=== PATIENT | male | born 1970 | race Caucasian/White ===

== ENCOUNTER → 2017-09-23 07:17 | Outpatient (CLI) | payer OTHER, SELFPAY ==
[2017-09-23 09:01] LABS: Basophils % 0.2 % (0.1-2.0); Eosinophils # 0.2 K/mm3 (0.0-0.4); Eosinophils % 3.7 % (0.1-12.0); Hematocrit 45.9 % (42.0-52.0); Hemoglobin 15.5 g/dL (14.1-18.0); Lymphocytes # 2.1 K/mm3 (0.7-4.5); Lymphocytes % 35.5 K/mm3 (10-50); Mean Corpuscular HGB Conc 33.7 g/dL (31.8-35.4); Mean Corpuscular Hemoglobin 30.9 pg (27.0-31.2); Mean Corpuscular Volume 91.8 fl (80-94); Mean Platelet Volume 8.3 fl (7.4-10.4); Monocytes # 0.4 K/mm3 (0.1-1.0); Monocytes % 6.1 % (1.7-9.3); Neutrophils # 3.2 K/mm3 (1.8-7.8); Neutrophils % 54.5 % (37.0-80.0); Platelet Count 211 K/mm3 (142-424); Red Cell Distribution Width 12.6 % (11.5-17.5); White Blood Count 5.9 K/mm3 (4.8-10.8)
[2017-09-23 09:37] LABS: Alanine Aminotransferase 47 U/L (12-78); Albumin Level 3.8 gm/dL (3.4-5.0); Albumin/Globulin Ratio 1.2 (1.1-1.8); Alkaline Phosphatase 67 U/L (46-116); Bilirubin,Total 0.6 mg/dL (0.2-1.0); Blood Urea Nitrogen 16 mg/dL (7-18); Calcium 8.9 mg/dL (8.5-10.1); Carbon Dioxide 31 mmol/L (21.0-32.0); Chloride 107 mmol/L (98-107); Chol/HDL Ratio 2.5 (1-3.5); Cholesterol 130 mg/dL (140-200); Estimated Glomerular Filt Rate 122 ml/min (>60); Free Thyroxine Index 4.3 ug/dL (5.93-13.13); GFR (African American) 148 ML/MIN (>60); Globulin 3.2 gm/dl (1.3-3.2); Glucose 88 mg/dL (74-106); HDL Cholesterol 52 mg/dL (27-67); LDL Cholesterol 58 mg/dL (0-130); Sodium 144 mmol/L (136-145); T4 (Thyroxine) 10.9 ug/dl (4.7-13.3); Thyroid Stimulating Hormone 0.01 uIU/ml (0.358-3.740); Triglycerides 101 mg/dL (30-200); Triiodothryronine (T3) Uptake 39 % (31-39); VLDL Cholesterol 20 mg/dL (0-40)
[2017-09-23 09:44] LABS: Aspartate Amino Transferase 19 U/L (15-37)
== END ==
PROVIDERS: PCP Internal Medicine Adolescent Medicine; Visit Provider Internal Medicine Adolescent Medicine
DX: E03.9 Hypothyroidism, unspecified (principal); E78.5 Hyperlipidemia, unspecified; C73 Malignant neoplasm of thyroid gland
CPT/HCPCS: 36415; 80053; 80061; 84436; 84443; 84479; 85025

== ENCOUNTER → 2018-07-08 14:02 | Outpatient (CLI) | payer OTHER, SELFPAY ==
[2018-07-08 15:36] LABS: Thyroid Stimulating Hormone 0.04 uIU/ml (0.358-3.740)
[2018-07-09 12:33] LABS: T4 (Thyroxine) 10.8 ug/dl (4.7-13.3); Triiodothryronine (T3) Uptake 37 % (31-39)
== END ==
PROVIDERS: Visit Provider Internal Medicine Adolescent Medicine
DX: E03.9 Hypothyroidism, unspecified (principal)
CPT/HCPCS: 36415; 84436; 84443; 84479

== ENCOUNTER → 2019-04-27 08:19 | Outpatient (CLI) | payer OTHER, SELFPAY ==
--- NOTE | 2019-04-27 08:22 | XR_ITS ---
PROCEDURE: XR HAND LT MIN 3V CLINICAL INDICATION: LT HAND INJURY, pain following injury COMPARISON: No exams were available for comparison FINDINGS: No fracture or dislocation. No lytic or blastic change. There is normal mineralization. The joint spaces are well-preserved. No significant degenerative/arthritic changes. No erosive changes evident. Other findings:None. IMPRESSION: Negative left hand Dictated by: Jerome Olivo MD 04/27/2019 09:27 Electronically signed by Jerome Olivo MD in [place] 04/27/2019 09:27
== END ==
PROVIDERS: PCP Internal Medicine Adolescent Medicine; Visit Provider Internal Medicine Adolescent Medicine
DX: S69.92XA Unspecified injury of left wrist, hand and finger(s), initial encounter (principal)
CPT/HCPCS: 73130

== ENCOUNTER → 2019-05-07 07:32 | Outpatient (CLI) | payer OTHER, SELFPAY ==
[2019-05-07 08:04] LABS: Basophils % 0.7 % (0.1-2.0); Eosinophils # 0.2 K/mm3 (0.0-0.4); Eosinophils % 3.9 % (0.1-12.0); Hematocrit 48.3 % (42.0-52.0); Hemoglobin 15.3 g/dL (14.1-18.0); Lymphocytes # 1.5 K/mm3 (0.7-4.5); Lymphocytes % 29.5 % (10-50); Mean Corpuscular HGB Conc 31.6 g/dL (31.8-35.4); Mean Corpuscular Hemoglobin 30.4 pg (27.0-31.2); Mean Platelet Volume 7.7 fl (7.4-10.4); Monocytes # 0.3 K/mm3 (0.1-1.0); Monocytes % 6.6 % (1.7-9.3); Neutrophils # 3.1 K/mm3 (1.8-7.8); Neutrophils % 59.3 % (37.0-80.0); Platelet Count 248 K/mm3 (142-424); Red Blood Count 5.04 M/mm3 (4.60-6.20); Red Cell Distribution Width 13.8 % (11.5-17.5); White Blood Count 5.2 K/mm3 (4.8-10.8)
[2019-05-07 10:38] LABS: Alanine Aminotransferase 33 U/L (12-78); Albumin/Globulin Ratio 1.3 (1.1-1.8); Alkaline Phosphatase 59 U/L (46-116); Aspartate Amino Transferase 12 U/L (15-37); Bilirubin,Total 0.7 mg/dL (0.2-1.0); Blood Urea Nitrogen 17 mg/dL (7-18); Carbon Dioxide 32 mmol/L (21.0-32.0); Chloride 104 mmol/L (98-107); Chol/HDL Ratio 2.9 (1-3.5); Cholesterol 164 mg/dL (140-200); Creatinine,Serum 0.84 mg/dL (0.70-1.30); Estimated Glomerular Filt Rate 98 ml/min (>60); Free Thyroxine Index 4.4 ug/dL (5.93-13.13); GFR (African American) 119 ML/MIN (>60); Globulin 3.2 gm/dl (1.3-3.2); Glucose 100 mg/dL (74-106); HDL Cholesterol 56 mg/dL (27-67); LDL Cholesterol 90 mg/dL (0-130); Prostate Specific Ag Screen 0.2 ng/mL (0.0-4.0); Sodium 142 mmol/L (136-145); T4 (Thyroxine) 10.9 ug/dl (4.7-13.3); Total Protein,Serum 7.2 gm/dL (6.4-8.2); Triglycerides 91 mg/dL (30-200); Triiodothryronine (T3) Uptake 40 % (31-39); VLDL Cholesterol 18 mg/dL (0-40)
== END ==
PROVIDERS: Visit Provider Internal Medicine Adolescent Medicine
DX: C73 Malignant neoplasm of thyroid gland (principal); E78.5 Hyperlipidemia, unspecified; E03.9 Hypothyroidism, unspecified; N40.0 Benign prostatic hyperplasia without lower urinary tract symptoms; Z12.5 Encounter for screening for malignant neoplasm of prostate
CPT/HCPCS: 36415; 80053; 80061; 84436; 84443; 84479; 85025; G0103

== ENCOUNTER → 2020-02-10 07:08 | Outpatient (CLI) | payer OTHER, SELFPAY ==
[2020-02-10 07:25] LABS: Basophils % 0.5 % (0.1-2.0); Eosinophils # 0.2 K/mm3 (0.0-0.4); Eosinophils % 3.2 % (0.1-12.0); Hematocrit 47.5 % (42.0-52.0); Hemoglobin 16.1 g/dL (14.1-18.0); Lymphocytes % 31.4 % (10-50); Mean Corpuscular HGB Conc 33.8 g/dL (31.8-35.4); Mean Corpuscular Volume 94.8 fl (80-94); Mean Platelet Volume 7.9 fl (7.4-10.4); Monocytes # 0.4 K/mm3 (0.1-1.0); Monocytes % 6.1 % (1.7-9.3); Neutrophils # 3.8 K/mm3 (1.8-7.8); Neutrophils % 58.8 % (37.0-80.0); Platelet Count 223 K/mm3 (142-424); Red Blood Count 5.01 M/mm3 (4.60-6.20); Red Cell Distribution Width 13.3 % (11.5-17.5); White Blood Count 6.5 K/mm3 (4.8-10.8)
[2020-02-10 08:31] LABS: Chloride 102 mmol/L (98-107); Potassium 4.1 mmoL/L (3.5-5.1); Sodium 137 mmol/L (136-145)
[2020-02-10 08:33] LABS: Blood Urea Nitrogen 18 mg/dl (9-20)
[2020-02-10 08:34] LABS: Alanine Aminotransferase 59 U/L (12-78); Albumin Level 4.4 g/dl (3.5-5.0); Albumin/Globulin Ratio 1.5 (1.1-1.8); Alkaline Phosphatase 57 U/L (38-126); Anion Gap 8.1 mEq/L (5-15); Aspartate Amino Transferase 38 U/L (17-59); Bilirubin,Total 0.6 mg/dl (0.2-1.3); Calcium 9.4 mg/dl (8.4-10.2); Carbon Dioxide 31 mmol/L (22.0-30.0); Cholesterol 163 mg/dl (140-200); Estimated Glomerular Filt Rate 90 ml/min (>60); GFR (African American) 109 ML/MIN (>60); Glucose 103 mg/dl (74-100); HDL Cholesterol 54 mg/dl (40-60); Total Protein,Serum 7.4 g/dl (6.3-8.2); Triglycerides 143 mg/dl (30-150); VLDL Cholesterol 29 mg/dL (0-40)
[2020-02-10 08:47] LABS: Direct LDL Cholesterol 78.29 mg/dL (100-129)
[2020-02-10 08:52] LABS: Free Thyroxine Index 3.7 ug/dL (5.93-13.13); T4 (Thyroxine) 9.9 ug/dl (5.53-11.0); Triiodothryronine (T3) Uptake 37 % (23.5-40.5)
[2020-02-10 08:53] LABS: 25-OH Vitamin D, Total 39.3 ng/mL (30-100)
[2020-02-10 09:05] LABS: Prostate Specific Ag Screen 0.3 ng/ml (0.0-4.0)
== END ==
PROVIDERS: Visit Provider Internal Medicine Adolescent Medicine
DX: E78.5 Hyperlipidemia, unspecified (principal); E03.9 Hypothyroidism, unspecified; M79.10 Myalgia, unspecified site; N40.0 Benign prostatic hyperplasia without lower urinary tract symptoms; Z12.5 Encounter for screening for malignant neoplasm of prostate
CPT/HCPCS: 36415; 80053; 80061; 82306; 84436; 84443; 84479; 85025; G0103

== ENCOUNTER → 2020-03-14 19:55 | Outpatient (CLI) | payer OTHER, SELFPAY | PROVIDERS: PCP Internal Medicine Adolescent Medicine; Visit Provider Internal Medicine Adolescent Medicine | DX: Z20.828 Contact with and (suspected) exposure to other viral communicable diseases (principal) | CPT/HCPCS: U0003 ==

== ENCOUNTER → 2022-03-13 06:50 | Outpatient (CLI) | payer OTHER, SELFPAY ==
[2022-03-13 07:37] LABS: Chloride 106 mmol/L (98-107); Sodium 140 mmol/L (136-145)
[2022-03-13 07:39] LABS: Alanine Aminotransferase 40 U/L (12-78); Albumin Level 4.4 g/dl (3.5-5.0); Alkaline Phosphatase 59 U/L (38-126); Aspartate Amino Transferase 35 U/L (17-59); Bilirubin,Total 0.4 mg/dl (0.2-1.3); Blood Urea Nitrogen 16 mg/dl (9-20); Estimated Glomerular Filt Rate 102 ml/min (>60); GFR (African American) 124 ML/MIN (>60)
[2022-03-13 07:40] LABS: Albumin/Globulin Ratio 1.8 (1.1-1.8); Calcium 9.3 mg/dl (8.4-10.2); Carbon Dioxide 31 mmol/L (22.0-30.0); Chol/HDL Ratio 2.9 (1-3.5); Cholesterol 153 mg/dl (140-200); Globulin 2.4 g/dL (1.3-3.2); Glucose 113 mg/dl (74-100); HDL Cholesterol 53 mg/dl (40-60); Total Protein,Serum 6.8 g/dl (6.3-8.2); Triglycerides 94 mg/dl (30-150); VLDL Cholesterol 19 mg/dL (0-40)
[2022-03-13 07:51] LABS: Direct LDL Cholesterol 74.65 mg/dL (100-129)
[2022-03-13 07:57] LABS: Triiodothryronine (T3) Uptake 40 % (23.5-40.5)
[2022-03-13 07:58] LABS: Free Thyroxine Index 4.4 ug/dL (5.93-13.13); T4 (Thyroxine) 10.9 ug/dl (5.53-11.0)
[2022-03-13 08:03] LABS: Basophils # 0.1 K/mm3 (0-0.2); Basophils % 1.2 % (0.1-2.0); Eosinophils # 0.4 K/mm3 (0.0-0.4); Eosinophils % 5.8 % (0.1-12.0); Hematocrit 46.3 % (42.0-52.0); Hemoglobin 15.4 g/dL (14.1-18.0); Mean Corpuscular HGB Conc 33.2 g/dL (31.8-35.4); Mean Corpuscular Hemoglobin 32.2 pg (27.0-31.2); Mean Corpuscular Volume 97.2 fl (80-94); Mean Platelet Volume 8.5 fl (7.4-10.4); Monocytes # 0.5 K/mm3 (0.1-1.0); Monocytes % 6.9 % (1.7-9.3); Neutrophils # 3.5 K/mm3 (1.8-7.8); Neutrophils % 55.1 % (37.0-80.0); Platelet Count 226 K/mm3 (142-424); Red Blood Count 4.76 M/mm3 (4.60-6.20); Red Cell Distribution Width 13.1 % (11.5-17.5); White Blood Count 6.4 K/mm3 (4.8-10.8)
[2022-03-13 08:37] LABS: Prostate Specific Ag Screen 0.4 ng/ml (0.0-4.0)
== END ==
PROVIDERS: PCP Internal Medicine Adolescent Medicine; Visit Provider Internal Medicine Adolescent Medicine
DX: C73 Malignant neoplasm of thyroid gland (principal); E03.9 Hypothyroidism, unspecified; E78.5 Hyperlipidemia, unspecified; N40.0 Benign prostatic hyperplasia without lower urinary tract symptoms; Z12.5 Encounter for screening for malignant neoplasm of prostate
CPT/HCPCS: 36415; 80053; 80061; 84436; 84443; 84479; 85025; G0103

== ENCOUNTER → 2022-03-20 15:09 | Outpatient (CLI) | payer OTHER, SELFPAY ==
[2022-03-20 16:09] LABS: Hemoglobin A1C 5.5 % (4.0-6.0)
[2022-03-20 18:54] LABS: Vitamin B12 527 pg/mL (239-931)
== END ==
PROVIDERS: PCP Internal Medicine Adolescent Medicine; Visit Provider Internal Medicine Adolescent Medicine
DX: E03.9 Hypothyroidism, unspecified (principal); E78.5 Hyperlipidemia, unspecified; Z79.899 Other long term (current) drug therapy
CPT/HCPCS: 36415; 82607; 82746; 83036

== ENCOUNTER → 2023-06-02 07:06 | Outpatient (CLI) | payer OTHER, SELFPAY ==
--- NOTE | 2023-06-02 07:40 | MR_ITS ---
FINAL REPORT CLINICAL HISTORY: left shoulder pain FINDINGS: Multiplanar MR imaging of the left shoulder was performed without contrast. There is motion artifact which limits exam sensitivity. The tendons of the rotator cuff are intact without evidence of rotator cuff tear. There is moderate AC joint arthrosis. Edema is seen in the distal clavicle, acromion and joint capsule which may be inflammatory or secondary to mild AC joint injury. A small amount of fluid is present in the subacromial/subdeltoid bursa. No labral tear is identified. The long head of the biceps tendon is intact. No significant glenohumeral joint effusion is identified. The musculature is intact. There is no evidence of soft tissue mass or cyst. IMPRESSION: No evidence of rotator cuff tear or labral tear. Moderate AC joint arthrosis with edema in the distal clavicle, acromion and joint capsule which may be inflammatory or secondary to mild AC joint injury. Mild a.c. joint arthrosis with mild subacromial/subdeltoid bursitis. Reviewed, Interpreted and Dictated by Michael Lange III, MD Transcribed by Kimberley Ames Authenticated and [facility]
== END ==
PROVIDERS: PCP Internal Medicine Adolescent Medicine; Visit Provider Orthopaedic Surgery
DX: M75.82 Other shoulder lesions, left shoulder (principal)
CPT/HCPCS: 73221

== ENCOUNTER 2023-09-10 06:48 | Outpatient (CLI) | payer OTHER, SELFPAY ==
[2023-09-10 07:49] LABS: Basophils # 0.1 K/mm3 (0-0.2); Basophils % 1.2 % (0.1-2.0); Eosinophils # 0.3 K/mm3 (0.0-0.4); Eosinophils % 5.4 % (0.1-12.0); Hematocrit 45.6 % (42.0-52.0); Hemoglobin 15.8 g/dL (14.1-18.0); Lymphocytes # 1.7 K/mm3 (0.7-4.5); Lymphocytes % 31.6 % (10-50); Mean Corpuscular HGB Conc 34.6 g/dL (31.8-35.4); Mean Corpuscular Hemoglobin 32.5 pg (27.0-31.2); Mean Corpuscular Volume 93.7 fl (80-94); Mean Platelet Volume 8.4 fl (7.4-10.4); Monocytes # 0.4 K/mm3 (0.1-1.0); Monocytes % 6.9 % (1.7-9.3); Neutrophils % 54.8 % (37.0-80.0); Platelet Count 211 K/mm3 (142-424); Red Blood Count 4.86 M/mm3 (4.60-6.20); Red Cell Distribution Width 13.1 % (11.5-17.5); White Blood Count 5.4 K/mm3 (4.8-10.8)
[2023-09-10 08:46] LABS: Alanine Aminotransferase 36 U/L (12-78); Albumin Level 4.3 g/dl (3.5-5.0); Albumin/Globulin Ratio 1.7 (1.1-1.8); Alkaline Phosphatase 62 U/L (38-126); Anion Gap 8.2 mEq/L (5-15); Aspartate Amino Transferase 30 U/L (17-59); Bilirubin,Total 0.7 mg/dl (0.2-1.3); Blood Urea Nitrogen 15 mg/dl (9-20); Calcium 9.3 mg/dl (8.4-10.2); Carbon Dioxide 31 mmol/L (22.0-30.0); Chloride 105 mmol/L (98-107); Chol/HDL Ratio 3.7 (1-3.5); Cholesterol 162 mg/dl (140-200); Estimated Glomerular Filt Rate 102 ml/min (>60); GFR (African American) 123 ML/MIN (>60); Globulin 2.6 g/dL (1.3-3.2); Glucose 95 mg/dl (74-100); HDL Cholesterol 44 mg/dl (40-60); Potassium 4.2 mmoL/L (3.5-5.1); Sodium 140 mmol/L (136-145); Total Protein,Serum 6.9 g/dl (6.3-8.2); Triglycerides 107 mg/dl (30-150); VLDL Cholesterol 21 mg/dL (0-40)
[2023-09-10 08:57] LABS: Direct LDL Cholesterol 82.65 mg/dL (100-129)
[2023-09-10 09:05] LABS: T4 (Thyroxine) 10.9 ug/dl (5.53-11.0); Triiodothryronine (T3) Uptake 37 % (23.5-40.5)
[2023-09-10 09:19] LABS: Thyroid Stimulating Hormone 0.14 uIU/mL (0.465-4.68)
== END 2023-09-10 23:59 ==
LOC: LAB 06:48
PROVIDERS: PCP Internal Medicine Adolescent Medicine; Visit Provider Internal Medicine Adolescent Medicine
DX: E03.9 Hypothyroidism, unspecified (principal); Z77.011 Contact with and (suspected) exposure to lead; Z79.899 Other long term (current) drug therapy; Z00.00 Encounter for general adult medical examination without abnormal findings
CPT/HCPCS: 36415; 80053; 80061; 83655; 84436; 84443; 84479; 85025

== ENCOUNTER 2023-10-29 06:36 | Outpatient (CLI) | payer OTHER, SELFPAY ==
[2023-10-29] MEDS: METOPROLOL TARTRATE 25MG TABLET 25 MG (06:55)
[2023-10-29] MEDS: IVABRADINE HCL 7.5MG TABLET 15 MG PO (06:55)
[2023-10-29] MEDS: METOPROLOL TARTRATE 50MG TABLET 50 MG (06:55)
[2023-10-29 07:05] VITALS: BP 120/69; PULSE 81; RESP 18; O2SAT 98; BMI 23.3
--- NOTE | 2023-10-29 07:21 | CT_ITS ---
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 A noncontrast coronary calcium scan was performed. A CT attenuation threshold of 130 Hounsfield units (HU) was used for the detection of calcium in contiguous voxels of 1 sq mm in area to be counted as individual lesions. Bolus tracking in the ascending aorta with a threshold of 180 HU was performed. Immediately afterwards, ECG synchronized cardiac CT was then performed from the cardiac base to apex using retrospective gating with ECG tube current modulation. A total of 85 mL of Isovue 370 mg/mL contrast medium was administered at 5 mL/sec followed by a saline flush using a biphasic injection protocol. A tube voltage of 120 KVp was used. The patient received the following medications prior to the cardiac CT. 75 mg of oral metoprolol 5 mg of intravenous metoprolol 15 mg of oral ivabradine 0.8 mg of sublingual nitroglycerin The average heart rate at the time of acquisition was 60 bpm and regular. Image Reconstruction Transaxial images were reconstructed at 0.67 mm slide thickness. Data was reviewed interactively on an advanced workstation capable of 2 and 3-dimensional displays in all conventional reconstruction formats, including multiplanar reformations, maximum intensity projections, curved multiplanar reformations, and volume rendered reconstructions. When applicable, selected routine images describing the relevant coronary anatomy and pathology were saved and sent to PACS. Complications None Technical Quality Overall image quality was good. Coronary artery opacification was adequate. Total DLP (Dose-Length Product) is 1669.3 mGy-cm. The reported value represents the total of one or more individual components during the CT acquisition of this date and at this time, and as such, the same value may appear in more than one CT report depending on the interpreting/reporting physicians. COMPARISON None FINDINGS CT Coronary Calcium Scoring LMA (Left Main Artery) = 134 LAD (Left Anterior Descending) = 226 LCX (Left Coronary Circumflex) = 0 RCA (Right Coronary Artery) = 107 Total Calcium Score = 466 using the AJ-130 method. The observed calcium score of 466 is at 98th percentile for subjects of the same age, sex, and race/ethnicity. The interpretation of the calcium heart score is based on the following continuum*: 0 = no calcified plaque detected (risk of coronary artery disease is very low ??? less than 5%) 1-10 = calcium detected in extremely minimal levels (risk of coronary diseases is still low ??? less than 10%) 11-100 = mild levels of plaque detected with certainty (mild or minimal narrowing of heart arteries is likely) 101-400 = definite,at least moderate levels of plaque detected (relatively high risk of a heart attack within 3-5 years) >401-999 = extensive levels of plaque detected (high risk of heart attack, high levels of vascular disease are present, high likelihood of at least one significant coronary narrowing) *The calcium heart score quantifies the burden of coronary calcification/plaque in the coronary arteries. The calcium heart score is not able to evaluate the presence or burden of non-calcified (i.e. soft) plaque. There is no identifiable calcification in the aortic valve, mitral annulus or mitral valve, pericardium, or myocardium. Coronary CT Angiography The coronary arterial system is right dominant. Quantitative Stenosis Grading: Left Main (LM): The left main originates normally from the left sinus of Valsalva. The LM trifurcates into the left anterior descending artery, ramus intermedius, and left circumflex artery. There is calcified plaque noted in the distal LM, with no significant luminal stenosis. Left Anterior Descending (LAD) and Diagonal Branches: The LAD gives off 2 diagonal branch(es). There are multiple mixed calcified/noncalcified plaque noted along the proximal and mid LAD, with up to 25-49% luminal stenosis. There is no evidence of LAD-myocardial bridge. Ramus-intermedius (RI): The RI is patent. Left Circumflex (LCX) and Obtuse Marginals (OM): The LCX gives off 1 Obtuse Marginal (OM) branch(es). The LCX and its branches are patent with no evidence of atherosclerosis. Right Coronary Artery (RCA): The RCA originates normally from the right sinus of Valsalva. The RCA gives off a posterior descending artery (PDA) and posterolateral (PL) branches. There is calcified plaque noted in the proximal RCA, with no significant luminal stenosis. Non-Coronary Cardiac Findings: Analysis of the left ventricular (LV) structure and function was performed after 3-D reconstruction of the LV from axial images, with user-corrected automatic contouring for assessment of LV volumes and user-defined reconstruction from oblique planes for measurement of 3-D cardiac structure and function. -The left ventricle systolic function is normal. -There is no left atrial appendage filling defect. Two right pulmonary veins and two left pulmonary veins drain normally into the left atrium. -No pericardial thickening or calcification. -Central and branch pulmonary arteries in the [id number] are unremarkable. -Thoracic aorta within the visualized thoracic aortic-branches in the [id number] is unremarkable. Extracardiac Structures No significant extra-cardiac findings. Note, however, that this study is focused on the cardiac findings. IMPRESSION -Presence of coronary calcification with an Agatston score = 466 using the AJ-130 method. -The observed calcium score of 466 is at 98th percentile for subjects of the same age, sex, and race/ethnicity. -Mild, non-obstructive atherosclerotic plaque in the proximal and mid LAD. No significant flow-limiting atherosclerosis of the coronary arteries. -CAD-RADS 2. Management recommendations per ACC/AHA guidelines*, as clinically appropriate. *Recommendations: CAD RADS 0: Reassurance. Consider non-atherosclerotic causes of chest pain. CAD RADS 1: Consider non-atherosclerotic causes of chest pain. Consider preventive therapy and risk factor modification. CAD RADS 2: Consider non-atherosclerotic causes of chest pain. Consider preventive therapy and risk factor modification, particularly for patients with nonobstructive plaque in multiple segments. CAD RADS 3: Consider further functional testing. Consider symptom-guided anti-ischemic and preventive pharmacotherapy as well as risk factor modification per published guideline statements. CAD RADS 4A: Consider further functional testing or invasive coronary angiography with revascularization per published guideline statements. Consider symptom-guided anti-ischemic and preventive pharmacotherapy as well as risk factor modification per published guideline statements. CAD RADS 4B: Invasive coronary angiography recommended with revascularization per published guideline statements. Consider symptom-guided anti-ischemic and preventive pharmacotherapy as well as risk factor modification per published guideline statements. CAD RADS 5: Consider invasive angiography and/or viability assessment with revascularization per published guideline statements. Consider symptom-guided anti-ischemic and preventive pharmacotherapy as well as risk factor modification per published guideline statements. CRITICAL RESULT None COMMUNICATION Per this written report The coronary and cardiac findings of this CCTA were reviewed, reported, and signed by Armand Estrella MD (Implementation Engineer) Conclusion Electronically signed by : Gaye Estrella MD 10/30/2023 12:42:26
[2023-10-29 07:55] VITALS: BP 128/81; PULSE 63; RESP 16; O2SAT 99
[2023-10-29] MEDS: NITROGLYCERIN 0.4MG SL TABLET 0.800000000000000044 MG SL (07:55)
[2023-10-29 08:00] VITALS: BP 113/74; PULSE 62; RESP 16; O2SAT 96
[2023-10-29 08:05] VITALS: BP 97/62; PULSE 68; RESP 17; O2SAT 94
[2023-10-29] MEDS: METOPROLOL TARTRATE 5MG/5ML VIAL *IVABRADINE+METOPROLOL REGIMINE 5 MG IV (08:05)
[2023-10-29 08:10] VITALS: BP 121/62; PULSE 67; RESP 17; O2SAT 96
[2023-10-29 08:15] VITALS: BP 115/71; PULSE 63; RESP 17; TEMP 36.6; O2SAT 97
[2023-10-29] MEDS: 0.9 % SODIUM CHLORIDE 50 ML VIAL IV (08:42)
[2023-10-29] MEDS: IOPAMIDOL-370 (76%);100ML BOTTLE 85 ML IV (08:43)
== END 2023-10-29 08:20 | disposition home or self-care (01) ==
PROVIDERS: PCP Internal Medicine Adolescent Medicine; Visit Provider Internal Medicine Adolescent Medicine
DX: R07.9 Chest pain, unspecified (principal)
CPT/HCPCS: 75571; 75574; Q9967

== ENCOUNTER 2023-12-20 08:02 | Outpatient (CLI) | payer OTHER, SELFPAY ==
[2023-12-20 09:02] LABS: Basophils # 0.1 K/mm3 (0-0.2); Basophils % 1.1 % (0.1-2.0); Eosinophils # 0.2 K/mm3 (0.0-0.4); Eosinophils % 3.4 % (0.1-12.0); Hematocrit 48.6 % (42.0-52.0); Hemoglobin 16.1 g/dL (14.1-18.0); Lymphocytes # 1.9 K/mm3 (0.7-4.5); Lymphocytes % 28.2 % (10-50); Mean Corpuscular HGB Conc 33.2 g/dL (31.8-35.4); Mean Corpuscular Hemoglobin 32.1 pg (27.0-31.2); Mean Corpuscular Volume 96.8 fl (80-94); Mean Platelet Volume 8.3 fl (7.4-10.4); Monocytes # 0.3 K/mm3 (0.1-1.0); Monocytes % 4.3 % (1.7-9.3); Neutrophils # 4.2 K/mm3 (1.8-7.8); Neutrophils % 63.1 % (37.0-80.0); Platelet Count 256 K/mm3 (142-424); Red Blood Count 5.02 M/mm3 (4.60-6.20); Red Cell Distribution Width 13.4 % (11.5-17.5); White Blood Count 6.7 K/mm3 (4.8-10.8)
[2023-12-20 11:12] LABS: Chloride 102 mmol/L (98-107)
[2023-12-20 11:13] LABS: Potassium 4.5 mmoL/L (3.5-5.1); Sodium 139 mmol/L (136-145)
[2023-12-20 11:15] LABS: Alanine Aminotransferase 42 U/L (12-78); Albumin Level 4.6 g/dl (3.5-5.0); Albumin/Globulin Ratio 1.5 (1.1-1.8); Alkaline Phosphatase 62 U/L (38-126); Anion Gap 11.5 mEq/L (5-15); Aspartate Amino Transferase 39 U/L (17-59); Bilirubin,Total 0.9 mg/dl (0.2-1.3); Blood Urea Nitrogen 18 mg/dl (9-20); Carbon Dioxide 30 mmol/L (22.0-30.0); Cholesterol 151 mg/dl (140-200); Estimated Glomerular Filt Rate 102 ml/min (>60); GFR (African American) 123 ML/MIN (>60); Total Protein,Serum 7.6 g/dl (6.3-8.2); Triglycerides 93 mg/dl (30-150); VLDL Cholesterol 19 mg/dL (0-40)
[2023-12-20 11:16] LABS: Calcium 9.6 mg/dl (8.4-10.2); Chol/HDL Ratio 2.4 (1-3.5); Glucose 98 mg/dl (74-100); HDL Cholesterol 64 mg/dl (40-60)
[2023-12-20 11:27] LABS: Direct LDL Cholesterol 70.55 mg/dL (100-129)
[2023-12-20 11:46] LABS: Thyroid Stimulating Hormone 0.44 uIU/mL (0.465-4.68)
[2023-12-20 12:03] LABS: Prostate Specific Ag Screen 0.3 ng/ml (0.0-4.0)
== END 2023-12-20 23:59 | disposition home or self-care (01) ==
PROVIDERS: PCP Internal Medicine Adolescent Medicine; Visit Provider Internal Medicine Adolescent Medicine
DX: E78.5 Hyperlipidemia, unspecified (principal); C73 Malignant neoplasm of thyroid gland; Z12.5 Encounter for screening for malignant neoplasm of prostate
CPT/HCPCS: 36415; 80053; 80061; 84443; 85025; G0103

== ENCOUNTER 2024-01-12 06:03 | Outpatient (CLI) | payer OTHER, SELFPAY ==
--- NOTE | 2024-01-12 | NM_ITS ---
APPROVED REPORT Exam: Nuclear Stress Test Indication: Chest pain, Family history Patient Location: Outpatient Stress Tech: Naty Buck AR Tech:Sadie Arzola, ARRT, RT (R)(N) Ht: 5 ft 5 in Wt: 140 lbs HR: 83 bpm BP: 118/74 mmHg BSA: 1.70 m2 Rhythm: NSR TID: 1.13 BMI: 23.2 History: Chest pain, Family history Procedure: Patient exercised on Hussain protocol 10:01 minutes and sec, resting heart rate 83 bpm, resting blood pressure 118/74 mmHg, with exercise maximum heart rate achived was 167 bpm which is 99 % of the maximum predicted heart rate and blood pressure was 163/86 mmHg. Test was stopped due to SOB. Patient denied any complaint of chest pain. Patient has average exercise capacity, achieved 12.8 METs of workload on treadmill, the blood pressure response to exercise was normal. Cardiac Stress and Resting SPECT Images: Cardiac Stress and Resting SPECT images were obtained using technetium 99m Myoview 29.6 mCi stress and 10.82 mCi at rest. Raw images demonstrate diaphragmatic overlap with the inferior border of the LV wall. Resting and stress imaging in supine and prone positions demonstrate no evidence of fixed or reversible perfusion defects. Gated imaging demonstrates normal global and regional LV systolic function. LVEF is calculated at 54%. Conclusion: Diaphragmatic attenuation is present. No evidence of fixed or reversible perfusion defects. Gated imaging demonstrates normal global and regional LV systolic function. LVEF is calculated at 54%. Electronically signed by : Gaye Estrella MD 01/12/2024 16:27:01
--- NOTE | 2024-01-12 | CA_ITS ---
APPROVED REPORT Exam: Exercise Treadmill Technologist: Naty Buck, Ht: 5 ft 5 in Wt: 140 lbs BSA: 1.70 m2 HR: 77 bpm BP: 118/74 mmHg Rhythm: NSR Medical History Medications: Levothyroxine,,,,, Atorvastatin,,,,, Finasteride,,,,, Stress Test Details Test: Hussain HR Resting HR: 83 bpm Max Heart Rate (APMHR): 168 bpm Max HR Achieved: 167 bpm Target HR (85% APMHR): 143 bpm % of APMHR: 99 HR response to stress: Normal HR response to stress BP Resting BP: 118.0/74 mmHg Max BP: 163/86 mmHg Recovery BP: 136.0/80.0 mmHg BP response to stress: Normal blood pressure response to stress. ECG Resting ECG: Normal sinus rhythm, T-wave changes in inferolateral leads Stress ECG: < 0.[address] depression Arrhythmia: None Recovery ECG: Return to baseline within 3 minutes of recovery Recovery Arrhythmia: None Clinical Exercise duration: 10:01 min Highest Stage Achieved: Exercise capacity: 12.8 METs Overall Exercise Capacity for Age: Average Stress ECG Conclusion The patient was able to exercise for a total of 10 minutes, 01 seconds. He achieved a total of 12.8 METS. He has average exercise capacity compared to age and sex matched peers. Normal HR and BP response to exercise. Ectopy: None ST changes: None METs: 12.8 Exercise was eventually stopped due to generalized fatigue. Conclusion: Average exercise capacity. No evidence of ischemia on ECG at peak stress. Myoview images are reported separately. Test Summary REST . . . . . . . Standing REST . . . . . . . Sitting REST 08:04 0.0 0.0 83 . 118/ 74 . . Stage 1 01:00 10.0 1.7 100 . . . . Stage 1 02:00 10.0 1.7 106 . . . . Stage 1 03:00 10.0 1.7 103 . 125/ 78 . . Stage 2 01:00 12.0 2.5 110 . . . . Stage 2 02:00 12.0 2.5 117 . . . . Stage 2 03:00 12.0 2.5 119 . 144/ 80 . . Stage 3 01:00 14.0 3.4 130 . . . . Stage 3 02:00 14.0 3.4 139 . . . . Stage 3 03:00 14.0 3.4 142 . 150/ 82 . . Stage 4 01:00 16.0 4.2 163 . . . . Stage 4 01:01 16.0 4.2 165 . . . Stop exercise at 10:01 RECOVERY 01:00 0.0 0.0 132 . 158/ 80 . . RECOVERY 02:00 0.0 0.0 119 . 158/ 80 . . RECOVERY 03:00 0.0 0.0 103 . 163/ 86 . . RECOVERY 03:21 0.0 0.0 103 . 136/ 80 . . Electronically signed by : Gaye Estrella MD 01/12/2024 16:24:39
--- NOTE | 2024-01-12 06:41 | CA_ITS ---
FINAL REPORT TECHNIQUE: Color Doppler, duplex Doppler and martínez scale sonography of the bilateral neck arterial vasculature was performed. Velocities were measured in the carotid arteries. Stenosis evaluation based on the validated velocity criteria. CLINICAL HISTORY: Abn CT calcium score, hx thyroidectomy. COMPARISON: None FINDINGS: The peak systolic velocity of the right common carotid artery is 106 cm/s. The peak systolic velocity of the right internal carotid artery is 96 cm/s and end diastolic velocity 35 cm/s. The ICA/CCA ratio is 0.91. A mild amount of plaque is present. The right external carotid artery is patent. The right vertebral artery is patent with antegrade flow. The peak systolic velocity of the left common carotid artery is 110 cm/s. The peak systolic velocity of the left internal carotid artery is 96 cm/s and end diastolic velocity 41 cm/s. The ICA/CCA ratio is 0.91. A mild amount of plaque is present. The left external carotid artery is patent.The left vertebral artery is patent with antegrade flow. IMPRESSION: Less than 50% bilateral carotid stenoses. Bilateral patent vertebral arteries with antegrade flow. If indicated, CTA or MRA could further evaluate. Reviewed, Interpreted and Dictated by Michael Lange III, MD Transcribed by Breanne Tolentino Authenticated and [facility]
[2024-01-12] MEDS: SODIUM CHLORIDE 0.9% 10ML SYR (RAD ONLY) 10 ML IV ×2 (08:39)
[2024-01-12] MEDS: ISOTOPE MYOVIEW (PER STUDY) 1 DOSE IV (08:39)
== END 2024-01-12 23:59 | disposition home or self-care (01) ==
LOC: RAD 06:04
PROVIDERS: PCP Internal Medicine Adolescent Medicine; Visit Provider Internal Medicine Adolescent Medicine
DX: R07.9 Chest pain, unspecified (principal); I65.23 Occlusion and stenosis of bilateral carotid arteries; E78.5 Hyperlipidemia, unspecified
CPT/HCPCS: 78452; 93017; 93018; 93880; A9502

== ENCOUNTER 2024-10-12 06:49 | Outpatient (CLI) | payer OTHER, SELFPAY ==
[2024-10-12 07:37] LABS: Basophils # 0.1 K/mm3 (0-0.2); Basophils % 0.9 % (0.1-2.0); Eosinophils % 14.1 % (0.1-12.0); Hematocrit 45.3 % (42.0-52.0); Hemoglobin 15.6 g/dL (14.1-18.0); Lymphocytes # 2.1 K/mm3 (0.7-4.5); Lymphocytes % 30.7 % (10-50); Mean Corpuscular HGB Conc 34.4 g/dL (31.8-35.4); Mean Corpuscular Hemoglobin 31.2 pg (27.0-31.2); Mean Corpuscular Volume 90.6 fl (80-94); Mean Platelet Volume 10.3 fl (7.4-10.4); Monocytes # 0.5 K/mm3 (0.1-1.0); Neutrophils # 3.2 K/mm3 (1.8-7.8); Neutrophils % 47.2 % (37.0-80.0); Platelet Count 217 K/mm3 (142-424); Red Cell Distribution Width 11.9 % (11.5-17.5); White Blood Count 6.7 K/mm3 (4.8-10.8)
[2024-10-12 08:01] LABS: Alanine Aminotransferase 68 U/L (12-78); Albumin Level 4.6 g/dl (3.5-5.0); Albumin/Globulin Ratio 2.2 (1.1-1.8); Alkaline Phosphatase 60 U/L (38-126); Anion Gap 10.1 mEq/L (5-15); Aspartate Amino Transferase 43 U/L (17-59); Bilirubin,Total 0.6 mg/dl (0.2-1.3); Blood Urea Nitrogen 21 mg/dl (9-20); Calcium 9.6 mg/dl (8.4-10.2); Carbon Dioxide 30 mmol/L (22.0-30.0); Chloride 104 mmol/L (98-107); Chol/HDL Ratio 2.6 (1-3.5); Cholesterol 115 mg/dl (140-200); Estimated Glomerular Filt Rate 102 ml/min (>60); GFR (African American) 123 ML/MIN (>60); Globulin 2.1 g/dL (1.3-3.2); Glucose 103 mg/dl (74-100); HDL Cholesterol 44 mg/dl (40-60); Potassium 4.1 mmoL/L (3.5-5.1); Sodium 140 mmol/L (136-145); Total Protein,Serum 6.7 g/dl (6.3-8.2); Triglycerides 76 mg/dl (30-150); VLDL Cholesterol 15 mg/dL (0-40)
[2024-10-12 08:11] LABS: Direct LDL Cholesterol 47.46 mg/dL (100-129)
[2024-10-12 08:17] LABS: Free Thyroxine Index 4.5 ug/dL (5.93-13.13); T4 (Thyroxine) 11.8 ug/dl (5.53-11.0); Triiodothryronine (T3) Uptake 38 % (23.5-40.5)
[2024-10-12 08:31] LABS: Thyroid Stimulating Hormone 0.57 uIU/mL (0.465-4.68)
[2024-10-14 10:42] LABS: Lipoprotein A 133.6 nmol/L (<75.0)
== END 2024-10-12 23:59 | disposition home or self-care (01) ==
LOC: LAB 06:50
PROVIDERS: PCP Internal Medicine Adolescent Medicine; Visit Provider Internal Medicine Adolescent Medicine
DX: C73 Malignant neoplasm of thyroid gland (principal); E78.5 Hyperlipidemia, unspecified; I65.29 Occlusion and stenosis of unspecified carotid artery
CPT/HCPCS: 36415; 80053; 80061; 83695; 84436; 84443; 84479; 85025

== ENCOUNTER 2025-04-13 06:59 | Outpatient (CLI) | payer OTHER, SELFPAY ==
[2025-04-13 09:21] LABS: Hematocrit 44.6 % (42.0-52.0); Hemoglobin 15.6 g/dL (14.1-18.0); Immature Granulocytes % 0.1 %; Mean Corpuscular HGB Conc 35.0 g/dL (31.8-35.4); Mean Corpuscular Hemoglobin 32.1 pg (27.0-31.2); Mean Corpuscular Volume 91.8 fl (80-94); Nucleated Red Blood Cells % 0 %; Platelet Count 233 K/mm3 (142-424); Red Blood Count 4.86 M/mm3 (4.60-6.20); Red Cell Distribution Width-SD 40.8 fL; White Blood Count 7.4 K/mm3 (4.8-10.8)
[2025-04-13 10:16] LABS: Alanine Aminotransferase 68 U/L (12-78); Albumin Level 4.4 g/dl (3.5-5.0); Albumin/Globulin Ratio 1.7 (1.1-1.8); Alkaline Phosphatase 53 U/L (38-126); Anion Gap 12.5 mEq/L (5-15); Aspartate Amino Transferase 41 U/L (17-59); Bilirubin,Total 0.8 mg/dl (0.2-1.3); Blood Urea Nitrogen 16 mg/dl (9-20); Calcium 9.1 mg/dl (8.4-10.2); Carbon Dioxide 30 mmol/L (22.0-30.0); Chloride 102 mmol/L (98-107); Cholesterol 126 mg/dl (140-200); Creatinine,Serum 0.90 mg/dl (0.66-1.25); Estimated Glomerular Filt Rate 88 ml/min (>60); GFR (African American) 107 ML/MIN (>60); Globulin 2.6 g/dL (1.3-3.2); Glucose 90 mg/dl (74-100); HDL Cholesterol 47 mg/dl (40-60); Potassium 4.5 mmoL/L (3.5-5.1); Sodium 140 mmol/L (136-145); Total Protein,Serum 7.0 g/dl (6.3-8.2); Triglycerides 85 mg/dl (30-150)
[2025-04-13 10:32] LABS: Free Thyroxine Index 3.9 ug/dL (5.93-13.13); T4 (Thyroxine) 9.9 ug/dl (5.53-11.0); Triiodothryronine (T3) Uptake 39 % (23.5-40.5)
[2025-04-13 10:46] LABS: Thyroid Stimulating Hormone 0.16 uIU/mL (0.465-4.68)
== END 2025-04-13 23:59 | disposition home or self-care (01) ==
LOC: LAB 07:01
PROVIDERS: PCP Internal Medicine Adolescent Medicine; Visit Provider Internal Medicine Adolescent Medicine
DX: C73 Malignant neoplasm of thyroid gland (principal); E78.5 Hyperlipidemia, unspecified; E03.9 Hypothyroidism, unspecified; D75.89 Other specified diseases of blood and blood-forming organs; I65.29 Occlusion and stenosis of unspecified carotid artery
CPT/HCPCS: 36415; 80053; 80061; 83695; 84436; 84443; 84479; 85025